=== PATIENT | female | born 1940 ===

== ENCOUNTER 2023-03-18 06:47 | Outpatient (REF) | payer MEDICARE, SELFPAY | END 2023-03-18 06:48 | disposition home or self-care (01) | LOC: HO.HOSX 06:47 | PROVIDERS: Visit Provider Orthopaedic Surgery | DX: M25.811 Other specified joint disorders, right shoulder (principal) | CPT/HCPCS: 73030; 99202 ==

== ENCOUNTER 2023-03-18 13:49 | Outpatient (AMB) | payer MEDICARE, SELFPAY ==
--- NOTE | 2023-03-18 13:59 | A.OFFVIS_ITS ---
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 Patient reports off and on pain for a month. Hx of right shoulder surgery in 2019. She denies any weakness. Has ta sheri ibuprofen which gives her mild relief. She denies any fevers or chills. She continues with her home exercise program. Allergies codeine Allergy (Intermediate, Verified 03/18/23 14:20) Headache Penicillins Allergy (Intermediate, Verified 03/18/23 14:20) Rash Medication List - Last Reconciled 03/18/23 by Jacob Schneider MD tramadol 50 mg PO Q8H PRN Physical Exam Const Other: Well-nourished well-developed very friendly female awake alert and oriented x3 in no acute distress Extrem Other: Bilateral upper extremity examination shows good capillary refill, no skin lesions noted, normal sensation light touch Right shoulder examination shows almost full range of motion when compared to her left shoulder, the surgical incisions are well healed, no erythema, positive impingement signs, no tenderness over her acromioclavicular joint, no instability Results Reviewed Results Reviewed: X-rays of the patient's right shoulder show a type 2 acromion, bony changes consistent with prior distal clavicle excision, no acute bony abnormalities Assessment & Plan Assessment & Plan (1) Impingement of right shoulder: Code(s): M25.811 - Other specified joint disorders, right shoulder Plan Ms. Hernandez presents with intermittent right shoulder pain most likely due to rotator cuff tendinosis. I had a lengthy discussion with the patient regarding the treatment options. We will hold off on a cortisone injection at this time. Activity modifications were discussed at length with the patient. I also gave the patient a prescription for tramadol. She will follow up with me on an as- needed basis should her symptoms not plateau at an unacceptable level over the next few months. Feel free to call me at any time should questions regarding her orthopedic management arise. I spent 22 minutes in reviewing the patient's records and imaging studies, seeing the patient and documenting in the medical record. Orders: Orders XR shoulder RT min 2V Today M25.511 - Pain in right shoulder Medications: New tramadol 50 mg PO Q8H PRN 60 tabs 0RF pain Coding Level of Care Code New Pt Level 2 (16118) Diagnoses Impingement of right shoulder M25.811
== END 2023-03-18 14:38 | disposition home or self-care (01) ==
PROVIDERS: PCP Internal Medicine; Visit Provider Orthopaedic Surgery
DX: M25.811 Other specified joint disorders, right shoulder (principal)
CPT/HCPCS: 99202; 99212

== ENCOUNTER 2024-03-09 11:26 | Outpatient (AMB) | payer MEDICARE, SELFPAY ==
--- NOTE | 2024-03-09 11:27 | MHC.OFFVIS ---
Intake Visit Reasons: OV- RT shoulder pain Intake Note: Muriel is a 83 year old female who presents with complaints of intermittent discomfort along the lateral aspect of her right shoulder. She states that her discomfort has gotten somewhat better over the last few weeks. She denies any weakness. She has taken Tylenol which gives her fairly good relief. Allergies codeine Allergy (Intermediate, Verified 03/18/23 14:20) Headache Penicillins Allergy (Intermediate, Verified 03/18/23 14:20) Rash Medication List - Last Reconciled 03/09/24 by Jacob Schneider MD tramadol 50 mg PO Q8H PRN Physical Exam Const Other: Well-nourished well-developed very friendly female awake alert and oriented x3 in no acute distress Extrem Other: Bilateral upper extremity examination shows good capillary refill, no skin lesions noted, normal sensation light touch Right shoulder examination shows full range of motion when compared to her left shoulder, 5/5 strength with supraspinatus testing, positive impingement signs, no instability Assessment & Plan Assessment & Plan (1) Impingement of right shoulder: Code(s): M25.811 - Other specified joint disorders, right shoulder Category: Medical Plan Ms. Hernandez presents with intermittent right shoulder discomfort due to impingement syndrome. I had a lengthy discussion with the patient regarding the treatment options. At this point the patient's symptoms are tolerable to her. She will continue with her [id number] exercises to prevent stiffness. She will follow up with me on an as-needed basis should her symptoms worsen in any way. Feel free to call me at any time should questions regarding her orthopedic management arise. I spent 21 minutes in reviewing the patient's records and imaging studies, seeing the patient and documenting in the medical record. Coding Level of Care Code Est Pt Level 3 (90290) Complex EM visit Add On G2211 Diagnoses Impingement of right shoulder M25.811
== END 2024-03-09 11:54 | disposition home or self-care (01) ==
PROVIDERS: PCP Internal Medicine; Visit Provider Orthopaedic Surgery
DX: M25.811 Other specified joint disorders, right shoulder (principal)
CPT/HCPCS: 99213

== ENCOUNTER → 2024-03-09 11:26 | Outpatient (BNVA) | payer MEDICARE, SELFPAY | PROVIDERS: PCP Internal Medicine; Visit Provider Orthopaedic Surgery | DX: M25.811 Other specified joint disorders, right shoulder (principal) | CPT/HCPCS: 99212 ==

== ENCOUNTER 2025-01-18 10:08 | Outpatient (AMB) | payer MEDICARE, SELFPAY ==
--- NOTE | 2025-01-18 10:13 | MHC.OFFVIS ---
Vital Signs 01/18/25 10:16 Height 5 ft 3 in Weight 112 lb BMI 19.8 Intake Visit Reasons: OV-Right shoulder pain Intake Note: Muriel is a 84 year old female right hand dominant who presents with complaints of intermittent right shoulder pain. The patient denies any weakness. She states that her pain has gotten somewhat better over the last few weeks. She has been doing gentle stretching exercises on her own. She notices the discomfort most when she puts her right hand behind her back. She takes Tylenol as needed for her discomfort. Allergies codeine Allergy (Intermediate, Verified 01/18/25 10:17) Headache Penicillins Allergy (Intermediate, Verified 01/18/25 10:17) Rash Medication List - Last Reconciled 01/18/25 by Jacob Schneider MD tramadol 50 mg PO Q8H PRN Physical Exam Vital Signs: BMI result Body Mass Index 19.8 Const Other: Well-nourished well-developed very friendly female awake alert and oriented x3 in no acute distress Extrem Other: Bilateral upper extremity examination shows good capillary refill, no skin lesions noted, normal sensation light touch Right shoulder examination shows slightly decreased range of motion when compared to her left shoulder, 4+ out of 5 strength with supraspinatus testing, positive impingement signs, no instability Assessment & Plan Assessment & Plan (1) Impingement of right shoulder: Code(s): M25.811 - Other specified joint disorders, right shoulder Category: Medical Plan Ms. Hernandez presents with intermittent right shoulder discomfort due to impingement syndrome. I had a lengthy discussion with the patient regarding the treatment options. At this point the patient's symptoms are tolerable to her. She will continue with her home stretching program to prevent stiffness. She will follow up with me on an as-needed basis should her symptoms worsen in any way. Feel free to call me at any time should questions regarding her orthopedic management arise. I spent 21 minutes in reviewing the patient's records and imaging studies, seeing the patient and documenting in the medical record. Coding Level of Care Code Est Pt Level 3 (02467) Complex EM visit Add On G2211 Diagnoses Impingement of right shoulder M25.811
[2025-01-18 10:16] VITALS: BMI 19.8
--- OUTSIDE RECORDS SUMMARY | 2025-01-18 10:42 | XMS_ITS | Clinical Summary ---
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 Phone Ngoc Cervantes MD Primary Care Provider [phone] Allergies Active Allergy Reactions Criticality Noted Date Comments Codeine 01/15/2021 Penicillins 01/15/2021 Medications Medication Sig Dispensed Refills Start Date End Date Status atorvastatin (LIPITOR) tablet 20 mg 0 10/29/2020 Active traMADol (ULTRAM) 50 MG tablet 0 01/14/2021 Active meloxicam (MOBIC) 15 MG tablet meloxicam 15 mg tablet TAKE ONE TABLET BY MOUTH ONE TIME DAILY 0 Active HYDROmorphone (Dilaudid) 2 MG tablet Take one tab every 6 hours as needed for pain 40 tablet 0 03/13/2021 Active traMADol (ULTRAM) 50 MG tablet Take 1 tab every 12 hours as needed for pain 60 tablet 0 12/24/2021 Active Family History Medical History Relation Name Comments Cancer Mother Relation Name Status Comments Mother Social History Tobacco Use Types Packs/Day Years Used Date Smoking Tobacco: Never Assessed Sex and Gender Information Value Date Recorded Sex Assigned at Not on file Gender Identity Not on file Sexual Orientation Not on file Job Start Date Occupation Industry Not on file Not on file Not on file Last Filed Vital Signs Vital Sign Reading Time Taken Comments Blood Pressure - - Pulse - - Temperature - - Respiratory Rate - - Oxygen Saturation - - Inhaled Oxygen Concentration - - Weight 49.9 kg (110 lb) 01/15/2021 1:58 PM EDT Height 160 cm (5' 3 ) 01/15/2021 1:58 PM EDT Body Mass Index 19.49 01/15/2021 1:58 PM EDT Plan of Treatment Health Maintenance Due Date Last Done Comments COVID-19 Vaccine (#1) 06/17/1941 Depression Screening 1953 Preventative Health Evaluation 12/16/1959 DTap / Tdap / Td (1 - Tdap) 1960 Shingrix-Zoster Vaccine (1 of 2) 12/16/1991 Fall Risk Assessment 2006 Osteoporosis Screening (DEXA Scan) 2006 Pneumococcal Vaccine (1 of 1 - PCV) 2006 RSV Adult > 60+ Yrs or Pregn ant (1 - 1-dose 75+ series) 2016 Influenza Vaccine (#1) 2025 Hepatitis B Vaccines Aged Out No long er eligible based on patient's age to complete this topic RSV Ped < 20 months Aged Out No longe r eligible based on patient's age to complete this topic Care Teams Tank Truck Loader Relationship Specialty Start Date End Date Ngoc Cervantes MD [address] [place] [address] PCP - General Internal Medicine 12/11/20
== END 2025-01-18 10:35 | disposition home or self-care (01) ==
LOC: HO.HOS 10:08
PROVIDERS: PCP Internal Medicine; Visit Provider Orthopaedic Surgery
DX: M25.811 Other specified joint disorders, right shoulder (principal)
CPT/HCPCS: 99213; G2211

== ENCOUNTER → 2025-01-18 10:08 | Outpatient (BNVA) | payer MEDICARE, SELFPAY | PROVIDERS: PCP Internal Medicine; Visit Provider Orthopaedic Surgery | DX: M25.811 Other specified joint disorders, right shoulder (principal) | CPT/HCPCS: 99212 ==